=== PATIENT | female | born 1975 | race Two or more races ===

== ENCOUNTER 2021-11-13 13:30 | Emergency (ER) | payer BC ==
[~2021-11-13] VITALS: Ht 165.1 cm; Wt 73.5 kg
[~2021-11-13 13:30] MED LIST: CIPRO500 MG PO; FORADIL12 MCG IH; PROVENTIL17 G1 IH; PYRIDIUM200 MG PO; SINGULAIR10 MG PO; TESSALON PERLE100 MG PO
== END 2021-11-13 15:22 | disposition home or self-care (01) ==
LOC: ER 13:30
DX: A49.3 Mycoplasma infection, unspecified site (principal); Z87.09 Personal history of other diseases of the respiratory system; Z20.822 Contact with and (suspected) exposure to COVID-19

== ENCOUNTER 2022-03-02 22:33 | Emergency (ER) | payer BC ==
[~2022-03-02] VITALS: Ht 165.1 cm; Wt 77.1 kg
[2022-03-03] MEDS ORDERED: PEPCID AC20 MG PO (13:18)
[2022-03-03] MEDS ORDERED: ZOFRAN8 MG PO (13:18)
== END 2022-03-03 13:29 | disposition home or self-care (01) ==
LOC: ER 22:33
DX: K52.9 Noninfective gastroenteritis and colitis, unspecified (principal); N39.0 Urinary tract infection, site not specified; Z88.6 Allergy status to analgesic agent; Z88.8 Allergy status to other drugs, medicaments and biological substances

== ENCOUNTER 2022-03-18 16:12 | Emergency (ER) | payer BC ==
[~2022-03-18] VITALS: Ht 165.1 cm; Wt 77.1 kg
[~2022-03-18 16:12] MED LIST changes: +PEPCID AC20 MG PO; +ZOFRAN8 MG PO
== END 2022-03-18 21:16 | disposition home or self-care (01) ==
LOC: ER 16:12
DX: J45.902 Unspecified asthma with status asthmaticus (principal); Z88.6 Allergy status to analgesic agent; Z88.8 Allergy status to other drugs, medicaments and biological substances

== ENCOUNTER 2022-11-23 08:58 | Emergency (ER) | payer OTHER ==
[~2022-11-23] VITALS: Ht 165.1 cm; Wt 75.7 kg
[2022-11-23 10:36] LABS: HEMOGLOBIN 14.2 g/dL (12.0-15.00); MEAN CELL VOLUME 88.4 fL (80.00-100.00); MEAN CORPUSCULAR HEMOGLOBIN 29.8 pg (27.00-32.0); MEAN CORPUSCULAR HGB CONC 33.7 g/dl (32.0-36.0); PLATELET COUNT 247 K/uL (150-450); RED BLOOD COUNT 4.75 M/uL (4.00-6.00); RED CELL DISTRIBUTION WIDTH 13.5 % (11.5-14.5)
[2022-11-23 11:14] LABS: CALCIUM 8.9 mg/dL (8.5-10.1); CREATININE SERUM 0.71 mg/dL (0.55-1.02); GFR 87.49; POTASSIUM 3.37 mEq/L (3.5-5.1)
[2022-11-23 12:27] LABS: ABG PH 7.428 (7.35-7.45); ABG PO2 101.4 mmHg (80-100); ABG pCO2 39.8 mmHg (35-45); BASE EXCESS 1.3 mmol/l; BICARBONATE 25.7 mmol/l (23-25)
[2022-11-23] MEDS ORDERED: ZITHROMAX500 MG PO (12:46)
== END 2022-11-23 16:36 | disposition home or self-care (01) ==
LOC: ER 08:58
PROVIDERS: General Practice
DX: J06.9 Acute upper respiratory infection, unspecified (principal); J45.901 Unspecified asthma with (acute) exacerbation; Z20.822 Contact with and (suspected) exposure to COVID-19; Z88.6 Allergy status to analgesic agent; Z91.09 Other allergy status, other than to drugs and biological substances

== ENCOUNTER 2023-05-21 17:15 | Emergency (ER) | payer OTHER ==
[~2023-05-21] VITALS: Ht 165.1 cm; Wt 78.9 kg
[~2023-05-21 17:15] MED LIST changes: +ZITHROMAX500 MG PO
[2023-05-21] MEDS ORDERED: SYMBICORT 16010.2 GM (18:00)
[2023-05-21] MEDS ORDERED: LEVALBUTEROL HCL 1.25 MG/3 ML SOLUTION IH ONE (18:30)
[2023-05-21] MEDS ORDERED: ACETAMINOPHEN 500 MG GEL..CAP PO ONE (18:30)
[2023-05-21] MEDS ORDERED: IPRATROPIUM BROMIDE 0.5 MG/2.5 ML AMPUL.NEB IH ONE (18:30)
[2023-05-21 18:34] LABS: HEMATOCRIT 41.7 % (36.0-45.00); HEMOGLOBIN 14.3 g/dL (12.0-15.00); MEAN CELL VOLUME 86.5 fL (80.00-100.00); MEAN CORPUSCULAR HEMOGLOBIN 29.5 pg (27.00-32.0); MEAN CORPUSCULAR HGB CONC 34.1 g/dl (32.0-36.0); PLATELET COUNT 272 K/uL (150-450); RED BLOOD COUNT 4.82 M/uL (4.00-6.00); RED CELL DISTRIBUTION WIDTH 13.8 % (11.5-14.5)
[2023-05-21 18:52] LABS: CALCIUM 8.7 mg/dL (8.5-10.1); CREATININE SERUM 0.78 mg/dL (0.55-1.02); GFR 78.17; POTASSIUM 4.12 mEq/L (3.5-5.1)
[2023-05-21 19:05] LABS: ABG PH 7.413 (7.35-7.45); ABG PO2 104.9 mmHg (80-100); ABG pCO2 33.9 mmHg (35-45); BASE EXCESS -2.6 mmol/l; BICARBONATE 21.1 mmol/l (23-25); Tco2 22.2 mmol/l; allen test SATISFACTORY; o2 21 %; puncture site RADIAL LEFT
[2023-05-21 19:29] LABS: URINE APPEARANCE Clear; URINE BILIRRUBIN Negative (NEGATIVE); URINE BLOOD Trace; URINE COLOR Yellow; URINE GLUCOSE Negative (NEGATIVE); URINE LEUKOCYTE Trace; URINE NITRATE Negative; URINE PROTEIN Negative (NEGATIVE); URINE UROBILINOGEN 0.2 E.U./dl
[2023-05-21 19:30] LABS: URINE BACTERIA 1607.5 uL (0.0-1933); URINE EPITHELIAL CELLS 11.7 uL (0.0-38.8); URINE RBC 6.4 uL (0.0-20.8); URINE WBC 14.3 uL (0.0-23.2)
== END 2023-05-21 21:11 | disposition home or self-care (01) ==
LOC: ER 17:15
PROVIDERS: General Practice
DX: B34.9 Viral infection, unspecified (principal); Z88.6 Allergy status to analgesic agent; Z88.8 Allergy status to other drugs, medicaments and biological substances; J45.909 Unspecified asthma, uncomplicated

== ENCOUNTER 2023-11-05 13:29 | Emergency (ER) | payer OTHER ==
[~2023-11-05] VITALS: Ht 165.1 cm; Wt 80.3 kg
[~2023-11-05 13:29] MED LIST changes: +SYMBICORT 16010.2 GM
== END 2023-11-05 16:24 | disposition home or self-care (01) ==
LOC: ER 13:30
DX: J06.9 Acute upper respiratory infection, unspecified (principal); Z88.6 Allergy status to analgesic agent; Z20.822 Contact with and (suspected) exposure to COVID-19

== ENCOUNTER 2023-12-31 18:04 | Emergency (ER) | payer OTHER ==
[~2023-12-31] VITALS: Ht 165.1 cm; Wt 78.0 kg
[2023-12-31] MEDS ORDERED: BENZONATATE 100 MG CAPSULE PO ONE (19:00)
[2023-12-31] MEDS ORDERED: LEVALBUTEROL HCL 0.63 MG/3 ML SOLUTION IH SCH (19:00)
[2023-12-31 20:32] LABS: HEMATOCRIT 36.7 % (36.0-45.00); HEMOGLOBIN 12.9 g/dL (12.0-15.00); MEAN CELL VOLUME 85.6 fL (80.00-100.00); MEAN CORPUSCULAR HEMOGLOBIN 30.1 pg (27.00-32.0); MEAN CORPUSCULAR HGB CONC 35.2 g/dl (32.0-36.0); PLATELET COUNT 245 K/uL (150-450); RED BLOOD COUNT 4.29 M/uL (4.00-6.00); RED CELL DISTRIBUTION WIDTH 13.3 % (11.5-14.5)
[2023-12-31 20:56] LABS: ALBUMIN 3.9 gm/dL (3.4-5.0); BILIRUBIN TOTAL 0.7 mg/dL (0.3-1.2); CALCIUM 8.7 mg/dL (8.5-10.1); CREATININE SERUM 0.86 mg/dL (0.55-1.02); GFR 69.84; GLOBULINA 3.7 G/DL (2.4-3.5); POTASSIUM 4.11 mEq/L (3.5-5.1); TOTAL PROTEIN 7.6 gm/dL (6.4-8.2)
[2023-12-31] MEDS ORDERED: FEXMID7.5 MG PO (21:28)
== END 2023-12-31 21:43 | disposition home or self-care (01) ==
LOC: ER 18:06
PROVIDERS: General Practice
DX: J45.901 Unspecified asthma with (acute) exacerbation (principal); Z88.6 Allergy status to analgesic agent; Z20.822 Contact with and (suspected) exposure to COVID-19